=== PATIENT | male | born 1975 | race Caucasian/White ===

== ENCOUNTER → 2018-10-09 | Outpatient (CLI) | payer BC ==
--- NOTE | 2018-10-09 13:52 | EST ---
EXERCISE STRESS DATE OF SERVICE: 10/09/2018 AGE: 43 SEX: Male HT: 72 WT: 240 PROTOCOL: Bandar STAGE: IV DURATION OF EXERCISE: 11 minutes 10 seconds HEART RATE REST: 75 BLOOD PRESSURE REST: 151/84 MAXIMUM HEART RATE ACHIEVED: 150 MAXIMUM BLOOD PRESSURE: 212/54 85% MPHR: 150 100% MPHR: 176 METS: 12.1 INDICATIONS: Cardia arrhythmia CLINICAL INFORMATION: Baseline EKG revealed normal sinus rhythm without significant ST-T changes. There was minor IVCD of a RBBB type. Nonspecific ST abnormality was noted. Patient walked for 11 minute 10 seconds on a standard Bandar protocol. Achieved a maximal heart rate of 150 beats per minute developed fatigue and shortness of breath and achieved 85% of predicted maximum. EKG did not reveal any ST-segment changes to indicate ischemia. There was no angina or arrhythmia. By EKG criteria, this is a negative stress test with minor resting EKG changes. Excellent exercise capacity was noted. FINAL IMPRESSION: Negative stress test with excellent exercise capacity. There were minor resting EKG changes of nonspecific type to begin with. BONITAL / IJN: [id number] /
--- NOTE | 2018-10-10 13:01 | ECHOF ---
Referral Reason:I49.9 cardiac arrythmia MEASUREMENTS -------- HEIGHT: 182.9 cm WEIGHT: 108.9 kg BP: 163/109 RVIDd: 3.5 cm (< 3.3) IVSd: 1.2 cm (0.6 - 1.1) LVIDd: 5.0 cm (3.9 - 5.3) LVPWd: 1.3 cm (0.6 - 1.1) IVSs: 1.8 cm LVIDs: 3.2 cm LVPWs: 1.8 cm LA Diam: 4.0 cm (2.7 - 3.8) LAESV Index (A-L): 19.78 ml/m Ao Diam: 3.9 cm (2.0 - 3.7) AV Cusp: 2.6 cm (1.5 - 2.6) MV EXCURSION: 22.907 mm (> 18.000) MV EF SLOPE: 120 mm/s (70 - 150) EPSS: 0.6 cm MV E Jared: 0.80 m/s MV DecT: 185 ms MV A Jared: 0.67 m/s MV E/A Ratio: 1.19 FINDINGS -------- Sinus rhythm. This was a technically good study. The left ventricular size is normal. There is mild concentric left ventricular hypertrophy. Overa ll left ventricular systolic function is normal with, an EF between 60 - 65 %. The right ventricle is mildly enlarged. Normal LA size by volume 22+/-6 ml/m2. The right atrium is normal in size. Interatrial and interventricular septum intact. The aortic valve is trileaflet and appears structurally normal. The mitral valve is normal. The tricuspid valve appears structurally normal. Trace/mild (physiologic) pulmonic regurgitation. The aortic root is dilated measuring 3.9cm. Normal inferior vena cava with normal inspiratory collapse consistent with estimated right atrial pre ssure of 5 mmHg. There is no pericardial effusion. CONCLUSIONS -------- 1. Sinus rhythm. 2. This was a technically good study. 3. The left ventricular size is normal. 4. There is mild concentric left ventricular hypertrophy. 5. Overall left ventricular systolic function is normal with, an EF between 60 - 65 %. 6. The right ventricle is mildly enlarged. 7. Normal LA size by volume 22+/-6 ml/m2. 8. The right atrium is normal in size. 9. Interatrial and interventricular septum intact. 10. The aortic valve is trileaflet and appears structurally normal. 11. The mitral valve is normal. 12. The tricuspid valve appears structurally normal. 13. Trace/mild (physiologic) pulmonic regurgitation. 14. The aortic root is dilated measuring 3.9cm. 15. Normal inferior vena cava with normal inspiratory collapse consistent with estimated right atrial pressure of 5 mmHg. 16. There is no pericardial effusion. VACUUM METALIZING SUPERVISOR: Kathya Buchanan RDCS
== END ==
LOC: RADNMMAIN 10:33
PROVIDERS: ATTEND Family Medicine
DX: I37.1 Nonrheumatic pulmonary valve insufficiency (principal)
CPT/HCPCS: 93017; 93270; 93306

== ENCOUNTER 2018-11-28 11:54 | Emergency (ER) | payer BC ==
[2018-11-28 12:05] VITALS: BP 152/89
[2018-11-28] MEDS ORDERED: MORPHINE SULFATE 4 MG/ML SYRINGE IM STA (12:26)
--- NOTE | 2018-11-28 12:32 | ED ---
General Adult HPI - General Chief complaint: Extremity Injury, Lower Stated complaint: fall 8-10' [facility] Time Seen by Provider: 11/28/18 12:06 Source: patient, RN notes reviewed Mode of arrival: wheelchair Limitations: no limitations - History of Present Illness Initial comments: 43-year-old male presents to the emergency department for a chief complaint of left foot pain 1 hour. Patient states that he was about 8 feet off the ground on a ladder when he started to slip. Patient states that he fell on his left foot. Patient states the bottom of his left foot is the most painful. States his left ankle and retana hurt somewhat as well. Denies any back pain. Patient did not hit his head or sustain any other injuries. Patient has no other complaints at this time including shortness of breath, chest pain, abdominal pain, nausea or vomiting, headache, or visual changes. - Related Data Home Medications Medication Instructions Recorded Confirmed Testosterone Cypionate 100 mg IM Q14D 05/30/17 06/01/17 [Depo-Testosterone] Previous Rx's Medication Instructions Recorded Omeprazole 40 mg PO DAILY #60 capsule. 06/01/17 Allergies Allergy/AdvReac Type Severity Reaction Status Date / Time Penicillins Allergy Unknown Verified 11/28/18 12:05 Childhood Review of Systems ROS Statement: Those systems with pertinent positive or pertinent negative responses have been documented in the HPI. ROS Other: All systems not noted in ROS Statement are negative. Past Medical History Past Medical History: Neurologic Disorder Additional Past Medical History / Comment(s): MIGRAINES. POSSIBLE HERNIA History of Any Multi-Drug Resistant Organisms: None Reported Past Surgical History: Adenoidectomy, Tonsillectomy Additional Past Surgical History / Comment(s): COLONOSCOPY Past Anesthesia/Blood Transfusion Reactions: No Reported Reaction Past Psychological History: No Psychological Hx Reported Smoking Status: Former smoker - Past Family History Mother Family Medical History: No Reported History General Exam Limitations: no limitations General appearance: alert, in no apparent distress Head exam: Present: atraumatic, normocephalic, normal inspection Eye exam: Present: normal appearance, PERRL, EOMI. Absent: scleral icterus, conjunctival injection, periorbital swelling ENT exam: Present: normal exam, mucous membranes moist Neck exam: Present: normal inspection, full ROM. Absent: tenderness, meningismus, lymphadenopathy Respiratory exam: Present: normal lung sounds bilaterally. Absent: respiratory distress, wheezes, rales, rhonchi, stridor Cardiovascular Exam: Present: regular rate, normal rhythm, normal heart sounds. Absent: systolic murmur, diastolic murmur, rubs, gallop, clicks Extremities exam: Present: tenderness (Tenderness worse in the plantar aspect of the left foot. Some mild lateral malleoli tenderness as well.), normal capillary refill (Capillary refill less than 2 seconds, DP pulse 2+ in the left lower extremity.), other (Skin is intact.). Absent: full ROM (Limited range of motion of the left ankle due to pain. However he is able to plantar and dorsiflex to some degree), pedal edema, joint swelling, calf tenderness Neurological exam: Present: alert, oriented X3, CN II-XII intact Psychiatric exam: Present: normal affect, normal mood Course Vital Signs 11/28/18 11/28/18 12:03 13:21 Temperature 99.0 F Pulse Rate 95 Respiratory 18 16 Rate Blood Pressure 152/89 O2 Sat by Pulse 97 Oximetry Procedures - Orthopedic Splinting/Casting Injury #1 Side: left Lower Extremity Injury Location: short leg Lower Extremity Immobilizer: posterior splint Other Orthopedic Equipment: crutches Medical Decision Making - Medical Decision Making 43-year-old male fell from about 8 feet onto his left foot. States it is very painful to move his toes. However he does have full range motion in all digits of the left foot. On exam patient has some edema noted to the plantar aspect of the left foot. No ecchymosis. Neurovascular status is intact. X-ray of the left tib-fib shows no acute fracture or dislocation seen. Foot x-ray shows no acute fracture or dislocation in the left foot or calcaneus. No fracture or dislocation seen in the lumbar spine. There is concern for soft tissue injury versus occult fracture versus tendon injury. Therefore patient was splinted in a posterior splint. Will be given orthopedic follow-up as well as crutches. He will remain nonweightbearing. Disposition Clinical Impression: Foot pain, left Disposition: HOME SELF-CARE Condition: Good Instructions (If sedation given, give patient instructions): Foot Contusion (ED) Additional Instructions: Take Motrin and Tylenol for pain. If pain is severe take Tylenol 3. Use crutches as directed. Keep the foot elevated and ice the area. Please follow- up with orthopedics in 1-2 days. Please return here to the emergency department if you have any worsening symptoms. Is patient prescribed a controlled substance at d/c from ED?: No Referrals: Vince Ortiz DO [Primary Care Provider] - 1-2 days Alex Candelaria MD [STAFF PHYSICIAN] - 1-2 days Time of Disposition: 13:59
--- NOTE | 2018-11-28 13:18 | XR ---
EXAMINATION TYPE: XR foot complete LT, XR calcaneus 2V LT DATE OF EXAM: 11/28/2018 CLINICAL HISTORY: Fall injury with pain. TECHNIQUE: Frontal, lateral, and oblique images of the left foot are obtained. 2 views left calcaneus are acquired. COMPARISON: None FINDINGS: No acute fracture or dislocation left calcaneus is seen. Boehler's angle is maintained. Ove rlying soft tissue is unremarkable. There is no acute fracture/dislocation evident in the left foot. There is mild narrowing and spurrin g first metatarsophalangeal joint. There is varus positioning and flexion distal fourth and fifth toe s. The overlying soft tissue appears unremarkable. IMPRESSION: There is no acute fracture or dislocation in the left foot or calcaneus.
--- NOTE | 2018-11-28 13:19 | XR ---
EXAMINATION TYPE: XR tibia fibula LT DATE OF EXAM: 11/28/2018 CLINICAL HISTORY: Left lower extremity pain after fall TECHNIQUE: Two views of the left leg are obtained. COMPARISON: None. FINDINGS: There is no acute fracture or dislocation seen in the left tibia or fibula. The left knee and ankle joints appear within normal limits. The overlying soft tissue appears unremarkable. IMPRESSION: There is no acute fracture or dislocation seen in the left tibia or fibula.
--- NOTE | 2018-11-28 13:19 | XR ---
EXAMINATION TYPE: XR lumbar spine 2 or 3V DATE OF EXAM: 11/28/2018 CLINICAL HISTORY: Pain after fall this morning. TECHNIQUE: Frontal and lateral images of the lumbar spine are obtained. COMPARISON: None. FINDINGS: There are 5 lumbar type vertebral bodies identified. The lumbar spine shows satisfactory alignment without evidence of acute fracture or dislocation. Moderate disc space narrowing L5-S1 leve l is seen otherwise intervertebral body heights and disk space heights are within normal limits. The overlying soft tissue appears unremarkable. IMPRESSION: No acute fracture or dislocation is seen in the lumbar spine.
[2018-11-28 13:22] VITALS: RESP 16
[2018-11-28] MEDS ORDERED: ACET/COD 300 MG/30 MG STARTER PACK 6 TAB BTL PO STA (14:00)
[2018-11-28 14:36] VITALS: PULSE 72; TEMP 98.7
== END 2018-11-28 14:25 | disposition home or self-care (01) ==
LOC: EC 11:54
DX: M79.672 Pain in left foot (principal); M25.572 Pain in left ankle and joints of left foot; M79.662 Pain in left lower leg; Z87.891 Personal history of nicotine dependence; Z88.0 Allergy status to penicillin; Z79.899 Other long term (current) drug therapy; W11.XXXA Fall on and from ladder, initial encounter
CPT/HCPCS: 72100; 73590; 73630; 73650; 99283; 29515; 96372; J2270

== ENCOUNTER → 2018-11-30 | Outpatient (CLI) | payer BC ==
--- NOTE | 2018-11-30 10:38 | US ---
EXAMINATION TYPE: US venous doppler duplex LE LT DATE OF EXAM: 11/30/2018 10:27 AM COMPARISON: NONE CLINICAL HISTORY: M79.672 Pain in left foot, I80.9 Phlebitis and thr. Pt states injury to left leg on 11-28-18/ pt having left leg pain/ no known prior DVT SIDE PERFORMED: Left TECHNIQUE: The lower extremity deep venous system is examined utilizing real time linear array sonog latasha with graded compression, doppler sonography and color-flow sonography. VESSELS IMAGED: External Iliac Vein (EIV) Common Femoral Vein Deep Femoral Vein Greater Saphenous Vein * Femoral Vein Popliteal Vein Small Saphenous Vein * Proximal Calf Veins (* superficial vessels) Left Leg: Negative for DVT Results called to Pamela at 's office at time of exam IMPRESSION: 1. No diagnostic evidence of DVT as visualized.
== END | disposition home or self-care (01) ==
LOC: RADUSWWP 10:04
PROVIDERS: ATTEND Orthopaedic Surgery
DX: S93.692A Other sprain of left foot, initial encounter (principal); S90.32XA Contusion of left foot, initial encounter; M79.672 Pain in left foot; I80.9 Phlebitis and thrombophlebitis of unspecified site; S80.02XA Contusion of left knee, initial encounter

== ENCOUNTER → 2020-07-31 | Outpatient (CLI) | payer BC ==
--- NOTE | 2020-07-31 20:18 | CONS ---
CONSULTATION DATE OF SERVICE: 07/31/2020 This is a 45-year-old gentleman who has been evaluated in Sleep Center for evaluation for possible obstructive sleep apnea-hypopnea syndrome. HISTORY OF PRESENT ILLNESS/SLEEP-WAKE EVALUATION: Patient's usual sleep schedule is from 10 or 11 p.m. to 5 or 6 a.m. on weekdays and until 6 or 7 a.m. on weekends. Sometimes he has problems with falling asleep. He has a TV set in the bedroom. He usually sleeps on the side and back positions. He wakes up from sleep more than 3 times, but usually without episodes of nocturia. In the morning the patient wakes up tired, has difficulties paying attention, falling asleep during the day. He has problems with memory, concentration, irritability and anxiety. [place] Sleepiness Scale today is 9. PAST MEDICAL HISTORY: Positive for episodes of anxiety. MEDICATIONS: Testosterone. PAST SURGICAL HISTORY: Tonsillectomy, adenoidectomy, left foot surgery. FAMILY HISTORY: Coronary artery disease with CABG. REVIEW OF SYSTEMS: Awakenings from sleep, tiredness and sleepiness during the day. PHYSICAL EXAMINATION: GENERAL: A pleasant gentleman without distress. VITAL SIGNS: BP 154/90, HR 76, RR 12, height 6 feet 1 inch, weight 258.6, temperature 97.7, oxygen saturation at room air 96%. HEENT: PERRLA, EOMI. Evaluation of oropharynx showed tongue protrudes midline. Extremely low position of soft palate. Mallampati IV. NECK: Supple. No JVD. Thyroid is not palpable. Wide neck; 17-1/2 inches in circumference. LUNGS: Clear to percussion and to auscultation. Good air exchange. No wheezing or rhonchi. HEART: S1, S2 regular. No murmurs, gallops or rubs. ABDOMEN: Slightly obese. EXTREMITIES: No clubbing or cyanosis. INDUSTRIAL CLEANING TECHNICIAN: Awake, alert, and oriented X3. Cranial nerves 2 to 7 intact. There is no fasciculation or atrophy. noted. No focal deficits observed. IMPRESSION: 1. Snoring, multiple awakenings from sleep, small oropharyngeal air space, wide neck, sleepiness; obstructive sleep apnea-hypopnea syndrome. 2. Increasing blood pressure in the office today. 3. Status post tonsillectomy and adenoidectomy. 4. Status post left foot surgery. 5. Obesity. BMI 34.0. PLAN: 1. Home sleep apnea test for evaluation of patient's breathing during sleep. 2. Watching and losing weight. 3. Sleep hygiene with regular time in bed for at least 7-1/2 to 8 hours. 4. No driving if feeling any sleepiness. 5. Following plan after reviewing results of the sleep study. Thank you very much for referring this patient for consultation. Sincerely, Irvin Aguillon MD, PhD, FAASM Diplomat of [place] [employer] [place] [employer] [place] MMODL / IJN: [id number] /
== END | disposition home or self-care (01) ==
LOC: SLEEP 16:43
PROVIDERS: ATTEND Internal Medicine
DX: G47.33 Obstructive sleep apnea (adult) (pediatric) (principal); R03.0 Elevated blood-pressure reading, without diagnosis of hypertension; E66.9 Obesity, unspecified; Z98.890 Other specified postprocedural states; Z68.34 Body mass index [BMI] 34.0-34.9, adult
CPT/HCPCS: 99211

== ENCOUNTER → 2020-10-08 | Outpatient (CLI) | payer BC ==
--- NOTE | 2020-10-09 05:07 | SFUN ---
SLEEP CENTER FOLLOW UP NOTE DATE OF SERVICE: 10/08/2020 INTERVAL HISTORY: This is a 45-year-old gentleman who has been followed in the Sleep Center for treatment of obstructive sleep apnea-hypopnea syndrome. Recently, patient had home sleep apnea test and has been diagnosed with obstructive sleep apnea-hypopnea syndrome; apnea-hypopnea index was 22 with oxygen desaturation to 77%. The patient was started on treatment with CPAP in automatic regimen. Range of the pressure 6-18. The patient falling asleep well in the beginning of the night, but then in the middle of the night he may wake up and may not sleep for about one hour. During this hour he watches TV. [place] Sleepiness Scale today is increased to 11. I checked his CPAP unit. Range of the pressure 6-18, mask fit 99%. Usage is 23/30 nights for more than 4 hours, average 4.9 hours per night. Apnea-hypopnea index is 2.9, which is totally normal. The patient is using a full-face mask and sometimes feels discomfort when he moves and may a leak to the upper part of the face including eyes. I discussed with him options for using different masks and showed him a Dream Wear mask and fit him for the size medium. I discussed results of sleep study with the patient in detail. PHYSICAL EXAMINATION: GENERAL: A pleasant patient without any distress. VITAL SIGNS: BP 150/89 , HR 96 , RR 18, weight 261.8, temperature 97.2, oxygen saturation at room air 96%. HEENT: PERRLA, EOMI, evaluation of oropharynx showed tongue protrudes midline. Extremely low position of soft palate. Mallampati IV. NECK: Supple, no JVD. Thyroid is not palpable. LUNGS: Clear to percussion and to auscultation. Good air exchange. No wheezing or rhonchi. HEART: S1, S2 regular. No murmurs, gallops, or rubs. ABDOMEN: Soft and nontender. Bowel sounds are present. No organomegaly appreciated. Obese. EXTREMITIES: No clubbing or cyanosis. FLOW WORKER: Awake, alert, and oriented X3. Cranial nerves 2 to 7 intact. There is no fasciculation or atrophy. noted. No focal deficits observed. IMPRESSION: 1. Obstructive sleep apnea-hypopnea syndrome in moderate range by results of home sleep apnea test which may underestimate severity of problem. The patient demonstrated good compliance with treatment. Respiration normalized on CPAP. 2. Insomnia, psychophysiological. 3. Increased blood pressure in the office. 4. Status post tonsillectomy. 5. Status post adenectomy. 6. Status post left foot surgery. 7. Obesity. PLAN: PLAN 1. Patient will continue to use PAP equipment every night for the whole night. 2. Sleep hygiene with regular time in bed for at least 7-1/2 to 8 hours. 3. Precautions related to driving. No driving if feeling sleepiness. 4. I will maintain all necessary prescription for PAP supplies including mask, tube, filters. 5. Watching weight. 6. Follow-up visit in 6 months or earlier if patient has any problems. 7. Prescription for Dream Wear medium size full-face mask. 8. I discussed with the patient psychological techniques for treatment of insomnia, including stimulus control, paradoxical intention. I spent 30 minutes with the patient. Thank you very much for allowing me to participate in the management of your patient. Sincerely, Irvin Aguillon MD, PhD, FAASM Diplomat of [employer] [employer] [employer] Design[employer] [facility] [place] MMODL / ALICEN: [id number] /

== ENCOUNTER → 2021-06-08 | Outpatient (CLI) | payer BC ==
--- NOTE | 2021-06-08 09:36 | XR ---
EXAMINATION TYPE: XR chest 2V DATE OF EXAM: 06/08/2021 COMPARISON: NONE HISTORY: Cough and congestion. TECHNIQUE: Frontal and lateral views of the chest are obtained. FINDINGS: There is no suspicious peripheral focal air space opacity, pleural effusion, or pneumothor ax seen. The cardiac silhouette size is within normal limits. The osseous structures are intact. IMPRESSION: No acute pulmonary process.
== END | disposition home or self-care (01) ==
LOC: RADXRMAIN 09:16
PROVIDERS: ATTEND Physician Assistant Medical
DX: R05.2 Subacute cough (principal); R09.89 Other specified symptoms and signs involving the circulatory and respiratory systems
CPT/HCPCS: 71046